=== PATIENT | male | born 2000 | race Caucasian/White ===

== ENCOUNTER 2020-08-11 02:46 | Emergency (ER) | payer SELFPAY ==
[2020-08-11 02:50] VITALS: BP 144/87; PULSE 83; RESP 16; TEMP 36.7; O2SAT 97
--- NOTE | 2020-08-11 03:03 | W.ED.GENAD ---
Discharge Plan Disposition Patient Disposition: HOME Condition: Good Discharge Details Clinical Impression: Abdominal pain Primary Care Provider: None,None ED Provider: Anibal White Home Meds and New Rx's Prescriptions: No Action No Known Home Meds RF: 0 Discharge Instructions Instructions: Biliary Colic (ED), Abdominal Pain (ED) Additional Instructions: I suspect this is related to gallbladder disease. Should avoid greasy, fried food. Will need primary care provider and outpatient ultrasound at some point. We will have care management help you arrange for follow-up. Return to ED for fever, worsening pain, persistent vomiting. Referrals: Care Management [Provider Group] Medical Decision Making Patient not best historian in regards to what foods cause this problem. However, given his report of multiple episodes like this related to eating and significant pain and vomiting tonight after a large greasy fried food meal, I suspect this is biliary colic. He does not look toxic. His abdomen is relatively benign though some tenderness in the right upper quadrant. We will plan IV, fluids, ondansetron, ketorolac. Will check abdominal labs. Patient reports that he feels fine at this point. Laboratory studies are unremarkable. White count minimally elevated. Liver function and lipase normal. Still suspect biliary colic less likely etiology. Does not have primary care. Will have care management help assign someone. Should have outpatient ultrasound and referral to surgery if ultrasound positive for stones. Return to ED for fever, worsening pain, persistent vomiting. Lab Data Lab results reviewed: Yes I reviewed the patient's lab results. HPI General Mode of arrival: ambulatory. Date/Time Provider Initiated Documentation: 08/11/20 03:03. Limitations to Documentation: no limitations. Information obtained by: patient and RN notes reviewed. HPI Narrative: Patient presents to ED with abdominal pain and vomiting. Patient reports prior episodes similar to this but only one other as severe as tonight. He has always associated with MSG. However this evening he had a fisherman's platter which was all fried food. He has had right upper quadrant and epigastric pain with associated vomiting all evening. No radiation to the back. No chest pain or shortness of breath. No diarrhea. No fever. Feels better sitting up straight and not moving. Remained uncomfortable and unable to sleep so sought evaluation here. Related Data Home Medications Medication Instructions Recorded Confirmed Unknown [No Known Home Meds] 08/11/20 08/11/20 Allergies Allergy/AdvReac Type Severity Reaction Status Date / Time pollen extracts Allergy Mild Unverified 10/31/17 08:20 ANIMALS Allergy Mild Uncoded 05/30/17 08:30 General Stated Complaint: Abd Prob REGGIE: 3 Review of Systems Narrative: As documented in HPI otherwise negative as below. Const: no fever, chills, weakness Resp: no cough, SOB, pleuritic pain CV: no CP, diaphoresis, edema, syncope GI: no diarrhea Neuro: no headache, numbness, focal weakness, confusion [facility] Medical History ADHD (attention deficit hyperactivity disorder) Asthma ? resolved 06/09 Insomnia Oppositional defiant behavior Surgical History Adenoidectomy Circumcision Myringotomy w/ PE (pressure equalizing) tubes Family History Mother Mental disorder ANXIETY/DEPRESSION Father Essential hypertension Grandfather Diabetes Heart disease PATERNAL GREAT GRANDMOTHER Diabetes Social History (Updated 08/11/20 @ 03:12 by Anibal White MD) Smoking/Tobacco Use Status: Current every day Smoking risk assessment performed?: Yes Alcohol Intake: current Alcohol Intake frequency: a few times a month Drug use: Occasionally Substance use type: marijuana Do you feel safe at home: Yes Do you feel safe in your relationship?: Yes Exam Narrative Exam Narrative: Const: WDWN male in NAD. HEENT: NC/AT. Normal facial exam. Eyes: Normal conjunctiva and sclera. Neck: Supple. Trachea midline. Lungs: Normal respiratory effort. Cor: Good radial pulses. GI: Soft and nondistended. Mild tenderness right upper quadrant. No guarding or rebound. No Espinoza sign. Neuro: A+O x 3. Normal speech, mentation, gait. Cranial nerves II - XII grossly intact. No gross motor or sensory deficit. Ext: No C/C/E. Skin: Warm and dry without rash. Course Vital Signs Vital signs: Vital Signs Temperature 98.1 F 08/11/20 02:50 Pulse 83 08/11/20 02:50 Respiratory Rate 16 08/11/20 02:50 Blood Pressure 144/87 H 08/11/20 02:50 Pulse Oximetry 97 08/11/20 02:50 Temperature 98.1 F 08/11/20 02:50 Temperature Source Skin 08/11/20 02:50 Pulse 83 08/11/20 02:50 Respiratory Rate 16 08/11/20 02:50 Respiratory Effort 08/11/20 02:56 Blood Pressure 144/87 H 08/11/20 02:50 Blood Pressure Position Supine 08/11/20 02:50 Pulse Oximetry 97 08/11/20 02:50 Oxygen Delivery Method Room Air 08/11/20 02:50 Oxygen Flow Rate 0 08/11/20 02:50 Pain Level 8 08/11/20 02:50
[2020-08-11] MEDS: Ondansetron 4 MG/2 ML VIAL IVP (03:23)
[2020-08-11] MEDS: Lactated Ringers 1,000 ML 1000 ML IV (03:23)
[2020-08-11] MEDS: Ketorolac 30 MG/ML VIAL IVP (03:24)
[2020-08-11 03:31] LABS: Abs Immature Grans 0.02 10^3/uL (0.0-0.06); Absolute Eosinophil Count 0.04 10^3/uL (0.0-0.7); Basophils % 0.3; Eosinophils % 0.3; HCT 46.8 % (40.0-50.0); Immature Grans % 0.2; Lymphocytes % 10.4; MCH 28.9 pg (27.0-33.0); MCHC 34.2 % (32.0-36.0); MCV 84.5 fL (80-95); MPV 9.3 fL (8.0-11.0); Monocytes % 5.1; Neutrophils % 83.7; Nucleated RBC 0 %; Platelet Count 259 10^3/uL (130-400); RBC 5.54 10^6/uL (4.36-5.78); RDW 13.2 % (11.8-14.1); RDW-SD 40.6 fL; WBC 11.69 10^3/uL (4.4-10.8)
[2020-08-11 03:32] LABS: Absolute Basophil Count 0.04 10^3/uL (0.0-0.2); Absolute Lymphocyte Count 1.22 10^3/uL (1.2-3.4); Absolute Neutrophil Count 9.78 10^3/uL (1.2-6.7)
[2020-08-11 04:00] LABS: ALT 61 U/L (16-63); AST 24 U/L (15-37); Albumin 4.5 g/dL (3.4-5.0); Alkaline Phosphatase 80 U/L (46-116); Anion Gap 9.8 mmol/L (3-11); BUN 17 mg/dL (7-18); Bilirubin, Total 0.5 mg/dL (0.2-1.0); CO2 29.2 mmol/L (21.0-32.0); CREATININE 1.06 mg/dL (0.70-1.30); Calcium 9.3 mg/dL (8.5-10.1); Chloride 99 mmol/L (98-107); Glucose 133 mg/dL (74-106); Lipase 50 U/L (73-393); Potassium 3.6 mmol/L (3.5-5.1); Sodium 138 mmol/L (136-145); Total Protein 8.2 g/dL (6.4-8.2)
--- NOTE | 2020-08-11 04:13 | NUR.NOTE ---
Referral to care management to get a pcp faxed [phone] August 11 2020 lib Nursing Note:
== END 2020-08-11 04:12 | disposition home or self-care (01) ==
PROVIDERS: Emergency Provider Emergency Medicine
DX: R10.11 Right upper quadrant pain (principal); R10.13 Epigastric pain; R11.2 Nausea with vomiting, unspecified
CPT/HCPCS: 36415; 80048; 80076; 83690; 96361; 96374; 96375; 99284; 85025; 99283; J1885; J2405

== ENCOUNTER 2021-02-26 22:40 | Inpatient (IN) | payer SELFPAY ==
[2021-02-26 22:45] VITALS: BP 144/87; PULSE 101; RESP 20; TEMP 37.5; O2SAT 98
--- NOTE | 2021-02-26 22:45 | DI.CT_ITS ---
Exam(s) CT ABDOMEN PELVIS W EXAM: CT ABDOMEN PELVIS W CLINICAL HISTORY: rlq and ruq tenderness, r/o gb and appe TECHNIQUE: COMPARISON: No exams were available for comparison FINDINGS: CT examination of the abdomen and pelvis was performed with bolus infusion of 100 cc of Omnipaque 350 . Images obtained through the lung bases are unremarkable. The liver appears normal with no evidence of a focal mass. Spleen is unremarkable in appearance.. Gallbladder and bile ducts are unremarkable. Pancreas is unremarkable in appearance. Adrenals appear normal bilaterally. Kidneys appear normal with no evidence of renal mass, hydronephrosis, or nephrolithiasis. Unremarkab le bladder. There is no evidence of abdominal or pelvic adenopathy. Abdominal aorta is of normal diameter and no abnormality is seen involving major visceral branches.. The appendix is dilated and fluid-filled with a thickened wall and periappendiceal fat stranding and small fluid collection. Findings are consistent with acute appendicitis. No evidence of abscess or perforation. No evidence diverticulitis or bowel obstruction. No significant abdominal wall hernia seen. Impression: Abnormal appendix with appearance consistent with acute uncomplicated appendicitis. RADIATION DOSE DELIVERED: 807.67mGy.cm Total DLP 807.67mGy.cm Total DLP DATA REPOSITORY: All CT scans at this facility are submitted to the National Radiology Data Registry (NRDR) Dose Index Registry (DIR) with the [employer] (A[employer]). RADIATION OPTIMIZATION: All CT scans at this facility use at least one of these dose optimization te chniques: automated exposure control; mA and/or kV adjustment per patient size (includes targeted exa ms where dose is matched to clinical indication); or iterative reconstruction.
--- NOTE | 2021-02-26 22:53 | W.ED.GENAD ---
Discharge Plan Disposition Patient Disposition: [facility] INPATIENT Condition: Improving Discharge Details Chief Complaint: Abd Prob Clinical Impression: Acute appendicitis Primary Care Provider: None,None ED Provider: Octavio Schroeder Home Meds and New Rx's Prescriptions: No Action No Known Home Meds RF: 0 Medical Decision Making This is a 21-year-old male with a past medical history of ADHD, asthma, regular alcohol use, as well as clinically suspected biliary colic on previous ER visits, who presents today for evaluation of right-sided abdominal pain. Patient states that for the last year or so he has had regular intermittent right-sided abdominal pain usually associated with fatty foods, however he states that a day and a half ago he had some chicken and since then has had severe right-sided abdominal pain. He vomited 5 times today and has not been able to keep anything down. He does admit to seeing a small amount of blood in his episodes of vomiting. He denies any diarrhea. He denies any chest pain or shortness of breath. He is not very clear when describing his symptoms, but does seem to state that it is unrelenting on the right side, and severe. He is otherwise not able to describe the consistency of the symptoms. He denies any radiation to the groin or genitals. He denies any urinary difficulty. No other complaints at this time. He has not seen a surgeon, he does not have a family doctor. He did take ibuprofen this morning and this did not improve his symptoms. Physical exam demonstrates notable right-sided abdominal tenderness, positive Rovsing sign, difficult to differentiate between right upper and right lower. No genital tenderness. No evidence of testicular torsion. Symptoms are concerning for acute appendicitis versus severe biliary colic or cholecystitis. We will get a CT scan, treat the patient's pain with Dilaudid and Nikita Mab, monitor closely and reassess. [address] scan shows evidence concerning for acute appendicitis. Radiologist did call us and discussed evidence of acute appendicitis on CT scan. Radiologist sees no evidence of acute cholecystitis. Patient has spiked a fever while here up to 38?C. We will start Zosyn, blood cultures have already been ordered and performed. We will contact the surgeon for potential surgical management here. 1:36 AM Patient's pain notably completely resolved. Patient has had no vomiting here. Patient feeling much better. Fever is now gone. Patient has received full dose of Zosyn. Discussed the case with Dr. Fuentes. She agrees with the assessment and plan. I will place bridging orders on her behalf. I have extensively reviewed the treatment plan with the patient. I have addressed all patient concerns at this time. I have also discussed the plan with the admitting physician and they agree with the current assessment and plan and have agreed to assume responsibility for the patient. All parties demonstrate verbal understanding and agreement with our assessment and plan at this time. The documentation in this chart was dictated using [employer] dictation software. Please excuse any dictation errors. FINDINGS: Lungs: Lung bases are unremarkable. Liver: Homogeneously enhances without mass. Gallbladder and bile ducts: No calcified stones, wall thickening or biliary dilatation. Pancreas: No mass or peripancreatic edema. Spleen: Homogeneously enhances. No splenomegaly. Adrenal glands: No adrenal nodule. Kidneys and ureters: Kidneys homogeneously enhance. No hydronephrosis. No renal or ureteral calculi. Stomach and bowel: Stomach is grossly unremarkable. No small or large bowel dilatation. No definite bowel wall thickening. Appendix: Appendix is distended and measures 1.2 cm in diameter. The wall the appendix is thickened. There is moderate adjacent stranding. There is no abscess or extraluminal air. Intraperitoneal space: No free air or free fluid. Vasculature: No abdominal aortic aneurysm. Lymph nodes: No significant adenopathy. Urinary bladder: No definite bladder wall thickening. Reproductive: Unremarkable as visualized. Bones/joints: No significant bony or joint space abnormality. Soft tissues: Extra-abdominal soft tissues are unremarkable. IMPRESSION: Acute appendicitis. Thank you for allowing us to participate in the care of your patient. Dictated and Authenticated by: Brendan Ortega MD 02/27/2021 12:21 AM Eastern Time ([place] & [place]) HPI General Date/Time Provider Initiated Documentation: 02/26/21 22:40. HPI Narrative: This is a 21-year-old male with a past medical history of ADHD, asthma, regular alcohol use, as well as clinically suspected biliary colic on previous ER visits, who presents today for evaluation of right-sided abdominal pain. Patient states that for the last year or so he has had regular intermittent right-sided abdominal pain usually associated with fatty foods, however he states that a day and a half ago he had some chicken and since then has had severe right-sided abdominal pain. He vomited 5 times today and has not been able to keep anything down. He does admit to seeing a small amount of blood in his episodes of vomiting. He denies any diarrhea. He denies any chest pain or shortness of breath. He is not very clear when describing his symptoms, but does seem to state that it is unrelenting on the right side, and severe. He is otherwise not able to describe the consistency of the symptoms. He denies any radiation to the groin or genitals. He denies any urinary difficulty. No other complaints at this time. He has not seen a surgeon, he does not have a family doctor. He did take ibuprofen this morning and this did not improve his symptoms. Related Data Home Medications Medication Instructions Recorded Confirmed Unknown [No Known Home Meds] 08/11/20 02/26/21 Allergies Allergy/AdvReac Type Severity Reaction Status Date / Time pollen extracts Allergy Mild Unverified 02/26/21 22:51 ANIMALS Allergy Mild Uncoded 02/26/21 22:51 General Stated Complaint: Abd Prob REGGIE: 3 Review of Systems All systems reviewed & are unremarkable except as noted in HPI and below PFSH Medical History ADHD (attention deficit hyperactivity disorder) Asthma ? resolved 06/09 Insomnia Oppositional defiant behavior Surgical History Adenoidectomy Circumcision Myringotomy w/ PE (pressure equalizing) tubes Family History Mother Mental disorder ANXIETY/DEPRESSION Father Essential hypertension Grandfather Diabetes Heart disease PATERNAL GREAT GRANDMOTHER Diabetes Social History Smoking/Tobacco Use Status: Current every day Tobacco Type: cigarettes Smoking risk assessment performed?: Yes Alcohol Intake: current Alcohol Intake frequency: 3 or more drinks per day Alcohol type: beer and hard liquor Drug use: Occasionally Substance use type: marijuana Do you feel safe at home: Yes Do you feel safe in your relationship?: Yes Exam Narrative Exam Narrative: 1.Const: Well-nourished, Well-developed, appearing stated age 2.Eyes: PERRL, no conjunctival injection, and symmetrical lids. 3.ENT: Atraumatic external nose and ears. Moist MM. Neck: Symmetric, trachea midline, No thyromegaly. 4.CVS: +S1/S2, No murmurs or gallops. Peripheral pulses 2+ and equal in all extremities. Brisk capillary refill in all extremities. 5.RESP: Unlabored respiratory effort. Clear to auscultation bilaterally. No wheezes rales or rhonchi 6.GI: Soft, nondistended, notable tenderness in the right mid abdominal quadrant, patient has notable voluntary guarding, and rebound tenderness on the right. Positive Rovsing sign as well. Difficult to ascertain Espinoza sign, patient does have pain at McBurney's point. No genital tenderness. No testicular or scrotal tenderness. No evidence of testicular torsion. Negative heel strike test, negative obturator and psoas sign. Mild right CVA tenderness. 7.MSK: Normocephalic/Atraumatic, Extremities w/o deformity or ttp No cyanosis or clubbing, Normal movement of all extremities 8.Skin: Warm, Dry. No rashes or lesions. 9.Neuro: family intervention specialist II-XII grossly intact. Sensation grossly intact, no focal neurologic deficits. 10.Psych: (AAO) x3. Appropriate mood and affect Course Vital Signs Vital signs: Vital Signs Temperature 37.5 C 02/26/21 22:45 Pulse 101 H 02/26/21 22:45 Respiratory Rate 20 02/26/21 22:45 Blood Pressure 144/87 H 02/26/21 22:45 Pulse Oximetry 98 02/26/21 22:45 Temperature 37.5 C 02/26/21 22:45 Temperature Source Skin 02/26/21 22:45 Pulse 101 H 02/26/21 22:45 Respiratory Rate 20 02/26/21 22:45 Blood Pressure 144/87 H 02/26/21 22:45 Blood Pressure Position Sitting 02/26/21 22:45 Pulse Oximetry 98 02/26/21 22:45 Oxygen Delivery Method Room Air 02/26/21 22:45 Oxygen Flow Rate 0 02/26/21 22:45 Pain Level 8 02/26/21 22:45
[2021-02-26 23:00] VITALS: TEMP 37.2
[2021-02-26] MEDS: Normal Saline 1,000 ML 1000 ML IV (23:05)
[2021-02-26 23:10] LABS: Abs Immature Grans 0.01 10^3/uL (0.0-0.06); Absolute Basophil Count 0.03 10^3/uL (0.0-0.2); Absolute Eosinophil Count 0.05 10^3/uL (0.0-0.7); Absolute Lymphocyte Count 1.38 10^3/uL (1.2-3.4); Absolute Monocyte Count 0.03 10^3/uL (0.1-0.8); Absolute Neutrophil Count 4.12 10^3/uL (1.2-6.7); Basophils % 0.5; Eosinophils % 0.9; HCT 52.2 % (40.0-50.0); HGB 17.5 g/dL (13.5-17.5); Immature Grans % 0.2; Lymphocytes % 24.6; MCH 28.7 pg (27.0-33.0); MCHC 33.5 % (32.0-36.0); MCV 85.7 fL (80-95); Monocytes % 0.5; Neutrophils % 73.3; Nucleated RBC 0 %; Platelet Count 259 10^3/uL (130-400); RBC 6.09 10^6/uL (4.36-5.78); RDW 13.2 % (11.8-14.1); RDW-SD 41.1 fL; WBC 5.62 10^3/uL (4.4-10.8)
[2021-02-26 23:21] LABS: ETHANOL BLOOD 4.5 mg/dL (<3)
[2021-02-26 23:24] LABS: ALT 39 U/L (16-63); AST 20 U/L (15-37); Albumin 4.4 g/dL (3.4-5.0); Alkaline Phosphatase 86 U/L (46-116); BUN 10 mg/dL (7-18); Bilirubin, Total 0.9 mg/dL (0.2-1.0); CREATININE 1.2 mg/dL (0.70-1.30); Calcium 9.6 mg/dL (8.5-10.1); Chloride 100 mmol/L (98-107); Glucose 117 mg/dL (74-106); Lipase 39 U/L (73-393); PTT Activated 23.9 sec (21.0-27.5); Potassium 3.6 mmol/L (3.5-5.1); Prothrombin Time 10.4 sec (9.3-11.0); Sodium 139 mmol/L (136-145); Total Protein 8.6 g/dL (6.4-8.2)
[2021-02-26] MEDS: HYDROmorphone 2 MG/ML VIAL 1 MG IVP (23:36)
[2021-02-26] MEDS: Normal Saline - Diluent 50 ML VIAL IV (23:36)
[2021-02-26] MEDS: Omnipaque 350 MG/ML 100 ML BTL IJ (23:36)
[2021-02-26] MEDS: Pantoprazole 40 MG VIAL IVP (23:41)
[2021-02-26] MEDS: FAMOTIDINE 20 MG/50 ML BAG 200 MG IVPB (23:42)
[2021-02-26 23:45] VITALS: BP 133/62; PULSE 108; RESP 16; TEMP 38.3; O2SAT 95
[2021-02-27] VITALS (18 sets, daily range): BP systolic 105–162; BP diastolic 51–107; PULSE 61–92; RESP 16–22; TEMP 36.1–37.4; O2SAT 92–98; BMI 31.3
[2021-02-27] MEDS: ACETAMINOPHEN 1,000 MG/100 ML BTL 400 MG IVPB ×4 (00:07→17:59)
[2021-02-27 00:15] LABS: COVID-19 PCR Negative (Negative)
--- NOTE | 2021-02-27 00:21 | DI.VRAD_ITS ---
Addendum created by Brendan Ortega MD on 02/27/2021 12:24:21 AM EDT: THIS REPORT CONTAINS FINDINGS THAT MAY BE CRITICAL TO PATIENT CARE. The findings were verbally communicated via telephone conference with АЛЕКСАНДР FALLON at 12:24 AM EDT on 02/27/2021. The findings were acknowledged and understood. Initial report created on 02/27/2021 12:21:29 AM EDT: PROCEDURE INFORMATION: Exam: CT Abdomen And Pelvis With Contrast Exam date and time: 02/26/2021 10:53 PM Age: 21 years old Clinical indication: Abdominal pain; Localized; Right lower quadrant (rlq); Patient HX: Rlq and ruq tenderness; Additional info: Reason(s) for exam: Pain. What type of pain is prompting the abdominal exam? Abdominal pain. Which best describes the abdominal pain? Localized. Where is the anatomical location of the pain? Right lower quadrant (rlq). Pertinent patient history: Rlq and ruq tenderness. Additional info: R/O gb and appe suspect an acute appendicitis. TECHNIQUE: Imaging protocol: Computed tomography of the abdomen and pelvis with contrast. Total images: 1244 COMPARISON: No relevant prior studies available. FINDINGS: Lungs: Lung bases are unremarkable. Liver: Homogeneously enhances without mass. Gallbladder and bile ducts: No calcified stones, wall thickening or biliary dilatation. Pancreas: No mass or peripancreatic edema. Spleen: Homogeneously enhances. No splenomegaly. Adrenal glands: No adrenal nodule. Kidneys and ureters: Kidneys homogeneously enhance. No hydronephrosis. No renal or ureteral calculi. Stomach and bowel: Stomach is grossly unremarkable. No small or large bowel dilatation. No definite bowel wall thickening. Appendix: Appendix is distended and measures 1.2 cm in diameter. The wall the appendix is thickened. There is moderate adjacent stranding. There is no abscess or extraluminal air. Intraperitoneal space: No free air or free fluid. Vasculature: No abdominal aortic aneurysm. Lymph nodes: No significant adenopathy. Urinary bladder: No definite bladder wall thickening. Reproductive: Unremarkable as visualized. Bones/joints: No significant bony or joint space abnormality. Soft tissues: Extra-abdominal soft tissues are unremarkable. IMPRESSION: Acute appendicitis. Dictated and Authenticated by: Brendan Ortega MD. Ordering:VICENTE Cunningham MD
[2021-02-27 00:24] LABS: Bilirubin Negative (Negative); Blood Trace-intact (Negative); Clarity Clear (Clear); Glucose Negative (Negative); Ketones Negative (Negative); Leukocyte Esterase Negative (Negative); Nitrite Negative (Negative); Specific Gravity 1.015 (1.005-1.025); Urobilinogen 0.2 EU/dL (Up TO 0.2); pH 6.5 (5-8)
[2021-02-27] MEDS: PIPERACILLIN/TAZO 4.5 GM in Normal Saline 100 ML IVPB ×4 (00:25→22:29)
[2021-02-27 00:30] LABS: Bacteria Negative HPF (Negative); C & S Indicated? No; Casts Negative LPF (Negative); Crystals Negative HPF (Negative); Epithelial Cells Negative HPF (Negative); Mucus Negative (Negative); WBC Negative HPF (0-5)
--- NOTE | 2021-02-27 01:58 | HPE_ITS ---
Date of service: 02/27/21 Time of Service: 01:59 Assessment and Plan Assessment and plan (1) Acute appendicitis: Status: Acute Assessment and plan: Informed consent is obtained for the procedural (explained in simple layman's terms that the pt and/or family could understand) explaining risks vs benefits and alternatives to the procedure and consequences if we do not do the procedure. Risks include but are not limited to:bleeding,infections, pneumonia, blood clots/DVT/PE, anesthesia(aspiration, damage to teeth/airway/[place]/CVA//prolonged mechanical ventilation/PTX/IV infections), damage to bowel, bladder,blood vessels, ureters. Leakage from anastomosis/staple line requiring colostomy/ Wound infections requiring further surgery. Scarring and disfigurement. Subsequent bowel obstructions from scar tissue. Possible open procedure if minimally invasive procedure is being attempted. abx supportive care appendix 6/6 pm History of Present Illness Consults Consult date: 02/27/21 Requesting physician: Octavio Schroeder Narrative: Patient is a 21-year-old otherwise healthy male who comes in today complaining of right lower quadrant abdominal pain. Patient's had it for the past 24 hours. He has had nausea and has not been able to eat he states this is been going off and on for the past 2 years and he is actually been diagnosed w ith biliary colic. He says the pain is on the suprapubic low level lateral to the suprapubic area on the right side and does not necessarily point to the right lower quadrant he is very nauseated he has been vomiting. He cannot remember the last thing he did eat. He denies any travel he denies any trauma. He has not been vaccinated. CT was obtained which did show acute appendicitis at the time of interview it is 3:15 AM. Myself and your crew will be back in 12 hours time to do this case. Patient is currently stable and will be maintained on antibiotics condition on suffered any sequelae from all 12-hour delay so the OR. Can get some rest I discussed with the patient what he could expect during surgery recovery time expectations how long he will be in the hospital and how long he would need to be off work. Patient is concerned because he has a court appearance on Sunday. We may or may not have him discharged by that time depending on the findings and surgery and he should probably make arrangements for a continuance participate via Zoom. He has a history of regular and daily alcohol use/daily nicotine use/regular use of THC.. He had dental surgery in the past in the did not give him enough anesthesia but that is the wound the only surgery he sat. There is no family history of problems with anesthesia that he is aware of Review of Systems All systems reviewed & are unremarkable except as noted in HPI and below PFSH Medical History (Updated 02/27/21 @ 17:13 by Lawanda Fuentes DO) ADHD (attention deficit hyperactivity disorder) Asthma ? resolved 06/09 Insomnia Oppositional defiant behavior Surgical History Adenoidectomy Circumcision Myringotomy w/ PE (pressure equalizing) tubes Family History Mother Mental disorder ANXIETY/DEPRESSION Father Essential hypertension Grandfather Diabetes Heart disease PATERNAL GREAT GRANDMOTHER Diabetes Social History Smoking/Tobacco Use Status: Current every day Tobacco Type: cigarettes Smoking risk assessment performed?: Yes Alcohol Intake: current Alcohol Intake frequency: 3 or more drinks per day Alcohol type: beer and hard liquor Drug use: Occasionally Substance use type: marijuana Do you feel safe at home: Yes Do you feel safe in your relationship?: Yes Meds Allergies and Home Medications Allergies Allergy/AdvReac Type Severity Reaction Status Date / Time pollen extracts Allergy Mild Unverified 02/26/21 22:51 ANIMALS Allergy Mild Uncoded 02/26/21 22:51 Home Medications Medication Instructions Recorded Confirmed Type Unknown [No Known Home Meds] 08/11/20 02/26/21 History Exam Const General: cooperative, healthy appearing, no acute distress, well developed, well groomed and frail appearing Nutritional Appearance: average body habitus and well nourished Orientation: alert, awake and oriented x3 HENMT Head: normal to inspection, normocephalic and atraumatic Ears: hearing grossly normal bilaterally and external ears normal General nose exam: external nose normal Face and sinus: normal facial exam and sinuses nontender Mouth: oral mucosae normal, lip normal, tongue normal and moist mucous membranes Teeth and gingiva: dentition normal Eyes General: appearance normal, both eyes and all related structures Conjunctivae: conjunctivae normal Sclera: sclerae normal Pupils: PERRL Neck Neck: normal visual inspection and full ROM Chest Chest: normal inspection of the chest Resp Effort & Inspection: normal respiratory effort, able to speak in complete sentences, no cough, no nasal flaring, not tachypneic and no use of accessory muscles Auscultation: clear to auscultation bilaterally, no rales, no rhonchi and no wheezes Cardio Jugular venous pressure: no JVD Rate: regular rate Rhythm: regular rhythm GI Inspection: normal to inspection, no edema and non-distended Palpation: soft, no masses, tender and No ascites Other: Bowel sounds are hypoactive. Abdomen is slightly distended. He is having pain in the right lower quadrant. He feels sick all over Skin General skin exam: no rashes or lesions noted Trauma: no lacerations or abrasions Other: He has multiple tattoos and multiple cutting esquivel on both his arms. Lower extremities show no clubbing cyanosis or edema swelling or redness or calf pain. Neuro General: patient alert, patient oriented x3, oriented, gait normal, moves all extremities, no focal motor deficits and CN's II-XI intact bilaterally Cognition: normal cognition Speech: speech normal Gait: normal gait Motor: muscle tone normal throughout Extrem General: normal to inspection, full ROM and no clubbing, cyanosis or edema Psych Appearance: grossly normal and well kempt Mental Status: mental status grossly normal Speech and Movement: speech and movement normal Affect: normal affect Results Labs Result diagrams: 02/26/21 23:00 02/26/21 23:00 Labs: Laboratory Results - last 24 hr 02/26/21 02/26/21 02/26/21 23:00 23:00 23:00 WBC 5.62 RBC 6.09 H Hgb 17.5 Hct 52.2 H MCV 85.7 MCH 28.7 MCHC 33.5 RDW 13.2 Plt Count 259 MPV 9.0 Immature Gran % 0.2 Neutrophils % 73.3 Lymphocytes % 24.6 Monocytes % 0.5 Eosinophils % 0.9 Basophils % 0.5 Nucleated RBC % 0 Absolute Neutrophils 4.12 Absolute Lymphocytes 1.38 Absolute Monocytes 0.03 L Absolute Eosinophils 0.05 Absolute Basophils 0.03 PT 10.4 INR 1.0 APTT 23.9 Sodium 139 Potassium 3.6 Chloride 100 Carbon Dioxide 31.0 Anion Gap 8.0 BUN 10 Creatinine 1.2 Estimated GFR/1.73 m2 >= 60.00 Glucose 117 H Calcium 9.6 Total Bilirubin 0.9 AST 20 ALT 39 Alkaline Phosphatase 86 Total Protein 8.6 H Albumin 4.4 Lipase 39 Urine Color Urine Clarity Urine pH Ur Specific [place] Urine Protein Urine Ketones Urine Blood Urine Nitrite Urine Bilirubin Urine Urobilinogen Ur Leukocyte Esterase Urine RBC Urine WBC Ur Epithelial Cells Urine Crystals Urine Bacteria Urine Casts Urine Mucus Ur Culture Indicated? Urine Glucose Ethyl Alcohol COVID-19 Source SARS-CoV-2 (PCR) 02/26/21 02/26/21 02/27/21 23:00 23:20 00:15 WBC RBC Hgb Hct MCV MCH MCHC RDW Plt Count MPV Immature Gran % Neutrophils % Lymphocytes % Monocytes % Eosinophils % Basophils % Nucleated RBC % Absolute Neutrophils Absolute Lymphocytes Absolute Monocytes Absolute Eosinophils Absolute Basophils PT INR APTT Sodium Potassium Chloride Carbon Dioxide Anion Gap BUN Creatinine Estimated GFR/1.73 m2 Glucose Calcium Total Bilirubin AST ALT Alkaline Phosphatase Total Protein Albumin Lipase Urine Color Yellow Urine Clarity Clear Urine pH 6.5 Ur Specific [place] 1.015 Urine Protein Negative Urine Ketones Negative Urine Blood Trace-intact H Urine Nitrite Negative Urine Bilirubin Negative Urine Urobilinogen 0.2 Ur Leukocyte Esterase Negative Urine RBC 3-5 H Urine WBC Negative Ur Epithelial Cells Negative Urine Crystals Negative Urine Bacteria Negative Urine Casts Negative Urine Mucus Negative Ur Culture Indicated? No Urine Glucose Negative Ethyl Alcohol 4.5 COVID-19 Source Nasopharyx SARS-CoV-2 (PCR) Negative Last Vital Signs Temp 37.4 C 02/27/21 00:26 Pulse 92 H 02/27/21 00:26 Resp 19 02/27/21 00:26 BP 131/59 L 02/27/21 00:26 Pulse Ox 96 02/27/21 00:26 COVID-19 Screening Have you, or household traveled for leisure in last 14 days?: No Had IN PERSON contact w/suspected or confirmed C-19 person: No
[2021-02-27] MEDS: Normal Saline 1,000 ML 150 ML IV ×3 (02:38→17:57)
[2021-02-27] MEDS: MORPHine 2 MG/ML SYR IVP ×4 (02:38→19:53)
[2021-02-27] MEDS: Pantoprazole 40 MG VIAL IVP (08:19)
[2021-02-27] MEDS: Normal Saline Flush 10 ML SYR IVP ×5 (08:24→22:28)
--- NOTE | 2021-02-27 13:08 | W.ANESPRE ---
General Info Date of Service Date Performed: 02/27/21 Height: 5 ft 7 in Weight: 90.718 kg Body Mass Index (BMI): 31.3 Surgical Procedure: Operation Date: 02/27/21 13:00 Proposed Procedures Side Surgeon p Appendectomy Laparoscopic Lawanda Fuentes, DO Meds Allergies and Home Medications Allergies Allergy/AdvReac Type Severity Reaction Status Date / Time pollen extracts Allergy Mild Unverified 02/26/21 22:51 ANIMALS Allergy Mild Uncoded 02/26/21 22:51 Home Medication Medication Instructions Recorded Unknown [No Known Home Meds] 08/11/20 Current Visit Medications: Current Medications Generic Name Dose Route Start Last Admin Trade Name Freq PRN Reason Stop Dose Admin Hydromorphone HCl 0.5 mg 02/27/21 02:04 Hydromorphone 2 Mg/Ml Vial IVP Q4H PRN PRN Sodium Chloride 500 mls @ 0 mls/hr 02/27/21 01:33 Saline 500ml Bag IV PRN PRN As Directed Sodium Chloride 1,000 mls @ 150 mls/hr 02/27/21 01:45 02/27/21 08:28 Saline 1000ml Bag IV 150 mls/hr INFUSION AIDA Administration Acetaminophen 1,000 mg in 100 mls @ 400 mls/hr 02/27/21 06:00 02/27/21 11:55 Ofirmev IVPB 400 mls/hr Q6H AIDA Administration Piperacillin Sod/Tazobactam 100 mls @ 25 mls/hr 02/27/21 08:00 02/27/21 08:19 Sod 4.5 gm/ Sodium Chloride IVPB 25 mls/hr Q8H AIDA Administration Protocol IV Miscellaneous Supplies 1 each 02/27/21 01:45 Iv Access IV DIRECTED AIDA Morphine Sulfate 2 mg 02/27/21 01:33 02/27/21 11:56 Morphine 2 Mg/Ml Syr IVP 2 mg Q1H PRN PRN Administration Ondansetron HCl 4 mg 02/27/21 01:33 Ondansetron 4 Mg/2 Ml Vial IVP Q4H PRN PRN Ondansetron HCl 4 mg 02/27/21 02:02 Ondansetron 4 Mg/2 Ml Vial IVP Q4H PRN PRN Pantoprazole Sodium 40 mg 02/27/21 08:30 02/27/21 08:19 Pantoprazole 40 Mg Vial IVP 40 mg DAILY AIDA Administration Sodium Chloride 0 ml 02/27/21 01:33 02/27/21 11:56 Normal Saline Flush 10 Ml Syr IVP 10 ml PRN PRN Administration [facility] Medical History Medical History ADHD (attention deficit hyperactivity disorder) Asthma ? resolved 06/09 Insomnia Oppositional defiant behavior Surgical History Surgical History Adenoidectomy Circumcision Myringotomy w/ PE (pressure equalizing) tubes Tobacco Smoking/Tobacco Use Status: Current every day Tobacco Type: cigarettes Alcohol Alcohol Intake: current Alcohol intake frequency: 3 or more drinks per day Alcohol type: beer and hard liquor Substance Use Substance use: Occasionally Substance use type: marijuana Vital Signs and Lab Results Vital Signs Most Recent Vital Signs in EMR: Most Recent Vital Signs Temp Pulse Resp BP Pulse Ox 36.9 C 82 17 139/75 98 02/27/21 11:09 02/27/21 11:09 02/27/21 11:09 02/27/21 11:09 02/27/21 11:09 Lab Results Result Diagrams: 02/26/21 23:00 02/26/21 23:00 Blood Type / Crossmatch: No Data to Display Complete Blood Count: White Blood Count 5.62 10^3/uL (4.4-10.8) 02/26/21 23:00 02/26/21 Red Blood Count 6.09 10^6/uL (4.36-5.78) H 02/26/21 23:00 02/26/21 Hemoglobin 17.5 g/dL (13.5-17.5) 02/26/21 23:00 02/26/21 Hematocrit 52.2 % (40.0-50.0) H 02/26/21 23:00 02/26/21 Platelet Count 259 10^3/uL (130-400) 02/26/21 23:00 02/26/21 Complete Metabolic Panel: Sodium Level 139 mmol/L (136-145) 02/26/21 23:00 02/26/21 Potassium Level 3.6 mmol/L (3.5-5.1) 02/26/21 23:00 02/26/21 Chloride Level 100 mmol/L (98-107) 02/26/21 23:00 02/26/21 Carbon Dioxide Level 31.0 mmol/L (21.0-32.0) 02/26/21 23:00 02/26/21 Blood Urea Nitrogen 10 mg/dL (7-18) 02/26/21 23:00 02/26/21 Creatinine 1.2 mg/dL (0.70-1.30) 02/26/21 23:00 02/26/21 Calcium Level 9.6 mg/dL (8.5-10.1) 02/26/21 23:00 02/26/21 Albumin 4.4 g/dL (3.4-5.0) 02/26/21 23:00 02/26/21 Glucose Level 117 mg/dL (74-106) H 02/26/21 23:00 02/26/21 Liver Function Panel: Alanine Aminotransferase (ALT/SGPT) 39 U/L (16-63) 02/26/21 23:00 02/26/21 Aspartate Amino Transf (AST/SGOT) 20 U/L (15-37) 02/26/21 23:00 02/26/21 Coagulation Panel: INR International Normalized Ratio 1.0 (0.9-1.1) 02/26/21 23:00 02/26/21 Prothrombin Time 10.4 sec (9.3-11.0) 02/26/21 23:00 02/26/21 Activated Partial Thromboplast Time 23.9 sec (21.0-27.5) 02/26/21 23:00 02/26/21 Cardiac Panel: No Data to Display Arterial Blood Gas: No Data to Display Venous Blood Gas: No Data to Display Pancreas Panel: Lipase 39 U/L (73-393) 02/26/21 23:00 02/26/21 Thyroid Panel: No Data to Display Infectious Disease: Coronavirus (COVID-19)(PCR) Negative (Negative) 02/26/21 23:20 02/26/21 Coronavirus 2019 Source Nasopharyx 02/26/21 23:20 02/26/21 Blood Cultures: No Data to Display Toxicology Panel: Ethyl Alcohol Level 4.5 mg/dL (<3) 02/26/21 23:00 02/26/21 Anesthesia Assessment and Plan Anesthesia History Personal History: No History of Anesthesia Complications Family History: No Family History of Anesthesia Complications Exercise Tolerance Exercise Tolerance: Metabolic Equivalents>4 Pertinent Negatives Pertinent Negatives: No Major Cardiovascular Symptoms or Complaints, No Major Pulmonary Symptoms or Complaints and No History of CVA/TIA Cardiac & Pulmonary Exam Cardiac Exam: Normal S1/S2 Heart Sounds Pulmonary Exam: Clear Bilateral Breath Sounds Airway Exam Known Difficult Airway: No Mallampati Class: 2 Mouth Opening: Normal (> 3cm) Thyromental Distance: Greater than 3 cm Neck Range of Motion: Full ROM Neck Circumference: Normal Teeth Condition: Normal Dentition ASA Classification ASA Score: ASA 2 Emergency Case?: Yes NPO Status NPO Status: NPO Clears >2 hours, Solids >8 hours Anesthesia Plan Resuscitation Status: Full Code Anesthesia Technique: General Anesthesia Airway Planned: Endotracheal Tube Monitors Used: Standard Monitors
--- NOTE | 2021-02-27 14:42 | APP_PTH ---
PATIENT: Jayme Lux LOC: U#:[id number] AGE/SX: 21/M ROOM: 207 RE02/27/[address]: Lawanda Fuentes : 2000 BED: A DIS: 02/28/2021 SPEC #: [id number] RECD: 02/28/21 13:01 STATUS: BRANDI RENey #: [id number] JACKIE: 02/27/21 14:[address]: Lawanda Fuentes DEPT: Surgical Specimen RECD BY: Bronwyn Prince ENTERED: 02/28/21 13:01 SP TYPE: Appendix OTHR DR: None Tissues: 1 - APPENDIX NOT INCIDENTAL Procedures: GROSS AND MICRO LEVEL 3 Comments: [id number]
--- NOTE | 2021-02-27 15:12 | W.PM.OP ---
Date of service: 02/27/21 Time of Service: 15:12 Operative Note Operative Note DATE OF PROCEDURE: 02/27/21 PRE-OP DIAGNOSIS: acute appy POST-OP DIAGNOSIS: same PROCEDURE: lap appy SURGEON: Lawanda Fuentes ANESTHESIA TYPE: Local By Surgeon and General LMA/ETT Refer to Anesthesia Record ESTIMATED BLOOD LOSS: 20 PATHOLOGY: other COMPLICATIONS: None Patient was transported to: PACU Patient's condition: stable Procedure Description: COMPLICATIONS: The patient tolerated the procedure well without complications. INDICATIONS: The patient has signs and symptoms compatible with acute appendicitis and is brought to the OR for laparoscopic appendectomy, possible open procedure. Informed consent is obtained for the procedural (explained in simple layman's terms that the pt and/or family could understand) explaining risks vs benefits and alternatives to the procedure and consequences if we do not do the procedure./staple line Risks include but are not limited to:bleeding,infections, pneumonia, blood clots/DVT/PE, anesthesia(aspiration, damage to teeth/airway/[place]/CVA//prolonged mechanical ventilation/PTX/IV infections), damage to bowel, bladder,blood vessels, ureters. Damage to solid organs requiring removal. Leakage from anastomosis staple line, which could requiring colostomy. Wound infections that could require further surgery. Scarring and disfigurement. Subsequent bowel obstructions from scar tissue. Possible open procedure if minimaly invsive procedure is being attempted. Abscess and stump appendicitis as well as others. Scarring and disfigurement. Chronic pain or chronic numbness DESCRIPTION OF PROCEDURE: The patient was brought to the operating room suite and placed in supine position. Anesthesia was administered per the Department of Anesthesia. A Zuñiga catheter and OG tube are placed. The patient was prepped and draped in the usual sterile fashion using ChloraPrep scrub solution. Pause for the cause was done. 30 mL of 1% buffered was used for local anesthetization. A stab incision was made in the umbilicus and the Veress was inserted. Drop test was positive and insufflation was begun. When 15 mm of pressure was noted on the monitor, the Veress was removed, a #5 port inserted. Camera inserted through the port shows no damage to underlying structures. Bowel, liver and stomach that are visualized are normal in appearance. Pelvic organs are not visualized. The appendix is inflamed, erythematous,enlarged, & distened, but does not appear to have been ruptured. The appendix is very suppurative. Appendix is. Medialized. And has to be dissected out from the surrounding peritoneum. It is also adhered to several loops of bowel as well and the appendix is dissected off the bowel. The appendix is also adherent to the ureter and this is dissected off it is it was easily visualized and was moving nicely. His urine was clear with no blood tingeing. There is no purulent drainage in the pelvis. It is not adhered to any adjacent structures. A 12 mm port was then placed in the suprapubic position under direct visualization following creation of a local field block as well as a second 5 mm port in the LLQ. The appendix is elevated and a rent dissected into the mesentery. The base of the appendix is healthy and will hold kassy. Once the appendix is divided considerable amount of time is spent dissecting the appendix from its peritoneal attachments and also freeing up the and defining and developing the appendiceal mesentery. Once this is done a Endo DARIUS stapler was placed across the mesentery and fired. A Endo-DARIUS stapler is placed across the base of the appendix and fired . The appendix is placed in a bag and brought out. There is no bleeding or enteric leakage from the staple lines. The pt does not require a drain. The abdomen was copiously irrigated with a liter of saline. All saline is evacuated. The scope and ports are removed. Pneumoperitoneum is evacuated. The fascia under the 12 mm port is closed with 0 Vicryl. There was no bleeding from the port sites as when they removed and the pneumoperitoneum evacuated. The wounds were copiously irrigated and closed in 2 layers with 4-0 Monocryl. Skin glue is used. Sterile dressings are applied. The patient tolerated the procedure without complication, transferred to the recovery room in stable condition. Family was apprised of patient condition. The appendix was very suppurative. And because of its proximity to urine I would like to keep him in the hospital overnight and flush him out will good. Would also like him to get another dose of antibiotics tonight. He should not need to go home on any further antibiotics. Provided he is doing okay in the morning he can be discharged.
--- NOTE | 2021-02-27 16:14 | W.ANESPOSTOP ---
Postoperative Evaluation Date, Time and Location Date Performed: 02/27/21 Time Performed: 16:09 Patient Location: Med/Surg Vital Signs Most Recent Imported Vital Signs: Most Recent Vital Signs Temp Pulse Resp BP Pulse Ox 36.5 C 66 22 158/107 H 95 02/27/21 15:51 02/27/21 15:51 02/27/21 15:51 02/27/21 15:51 02/27/21 15:51 Pain Score Most Recent Pain Score: Most Recent Pain Score Pain Level 0 02/27/21 15:51 Assessment Mental Status: Awake (Alert & Oriented to Patient Baseline) Airway and Respiratory Function: Patent airway with normal (patient baseline) respiratory exam Cardiovascular Function: Hemodynamically Stable Hydration Status: Adequately Hydrated Nausea & Vomiting: No Nausea or Vomiting Pain: Pt. Denies Any Pain Peripheral Nerve Block: Patient did not receive a nerve block
--- NOTE | 2021-02-27 16:23 | NUR.NOTE ---
Nursing Note: Pt went to OR for appendectomy, returned from OR awake, but disoriented slightly. Nursing reports Pt had ketamine during case and he is being slightly silly. VSS. will monitor.
[2021-02-27] MEDS: HYDROmorphone 2 MG/ML VIAL 0.5 MG IVP (16:33)
[2021-02-27] MEDS: Ondansetron 4 MG/2 ML VIAL IVP (16:33)
[2021-02-27] MEDS: Lactated Ringers 1,000 ML 75 ML IV (16:36)
--- NOTE | 2021-02-27 17:12 | W.PM.PROGNOT ---
Date of Service Date of service: 02/27/21 Time of Service: 17:12 Assessment and Plan Assessment and plan (1) Acute appendicitis: Status: Acute Assessment and plan: -cont abx x 24 hrs. not ruptured, but suppurative. -cont hydration- appendix was adhered down to ureter. urine was clear postOp. Want to continue hydration over night to avoid clots. -flavio inh -hopefully d/c in am The patient is doing well post-op. Their pain is well controlled. They are having no nausea or vomiting. The pt is not having any chest pain or SOB, productive cough; no calf pain or swelling. The pt is making good urine. The pt pain is adequately controlled. The case was discussed with nursing and patient?s progress reviewed. All of the pt's home medications were addressed and adjusted accordingly for their oral intact status. HEENT: no jaundice. no eye pain/drainage/redness/swelling. Mild sore throat Cardio- NSR no chest pain, BP stable. Pulm: no sob or productive cough. no hemoptysis Incision- clean/dry. Dressing intact no excessive bleeding or drainage I discussed with the patient the findings in surgery and the pt's progress. We reviewed expectations for progress in the hospital; what the pt could expect for recovery time and length of stay. We discussed the importance of walking and pulmonary toilet to avoid blood clots and pneumonia. Continue current plans for pulmonary toilet, GI and DVT prophylaxis. We shall continue the current plan for pain management as it is at an appropriate level, and working well for the pt. Appropriate measures will be taken for constipation prevention, and this was also reviewed with the pt. The wound care plan was reviewed with nursing as well. see orders (2) Smoker: Status: Acute (3) Insomnia: Status: None (4) ADHD (attention deficit hyperactivity disorder): Status: None (5) Asthma: Status: None Objective Last Vital Signs Temp 36.3 C L 02/27/21 16:43 Pulse 61 02/27/21 16:43 Resp 16 02/27/21 16:43 BP 130/82 02/27/21 16:43 Pulse Ox 98 02/27/21 16:43 Laboratory Results - last 24 hr 02/26/21 02/26/21 02/26/21 23:00 23:00 23:00 WBC 5.62 RBC 6.09 H Hgb 17.5 Hct 52.2 H MCV 85.7 MCH 28.7 MCHC 33.5 RDW 13.2 Plt Count 259 MPV 9.0 Immature Gran % 0.2 Neutrophils % 73.3 Lymphocytes % 24.6 Monocytes % 0.5 Eosinophils % 0.9 Basophils % 0.5 Nucleated RBC % 0 Absolute Neutrophils 4.12 Absolute Lymphocytes 1.38 Absolute Monocytes 0.03 L Absolute Eosinophils 0.05 Absolute Basophils 0.03 PT 10.4 INR 1.0 APTT 23.9 Sodium 139 Potassium 3.6 Chloride 100 Carbon Dioxide 31.0 Anion Gap 8.0 BUN 10 Creatinine 1.2 Estimated GFR/1.73 m2 >= 60.00 Glucose 117 H Calcium 9.6 Total Bilirubin 0.9 AST 20 ALT 39 Alkaline Phosphatase 86 Total Protein 8.6 H Albumin 4.4 Lipase 39 Urine Color Urine Clarity Urine pH Ur Specific [place] Urine Protein Urine Ketones Urine Blood Urine Nitrite Urine Bilirubin Urine Urobilinogen Ur Leukocyte Esterase Urine RBC Urine WBC Ur Epithelial Cells Urine Crystals Urine Bacteria Urine Casts Urine Mucus Ur Culture Indicated? Urine Glucose Ethyl Alcohol COVID-19 Source SARS-CoV-2 (PCR) 02/26/21 02/26/21 02/27/21 23:00 23:20 00:15 WBC RBC Hgb Hct MCV MCH MCHC RDW Plt Count MPV Immature Gran % Neutrophils % Lymphocytes % Monocytes % Eosinophils % Basophils % Nucleated RBC % Absolute Neutrophils Absolute Lymphocytes Absolute Monocytes Absolute Eosinophils Absolute Basophils PT INR APTT Sodium Potassium Chloride Carbon Dioxide Anion Gap BUN Creatinine Estimated GFR/1.73 m2 Glucose Calcium Total Bilirubin AST ALT Alkaline Phosphatase Total Protein Albumin Lipase Urine Color Yellow Urine Clarity Clear Urine pH 6.5 Ur Specific [place] 1.015 Urine Protein Negative Urine Ketones Negative Urine Blood Trace-intact H Urine Nitrite Negative Urine Bilirubin Negative Urine Urobilinogen 0.2 Ur Leukocyte Esterase Negative Urine RBC 3-5 H Urine WBC Negative Ur Epithelial Cells Negative Urine Crystals Negative Urine Bacteria Negative Urine Casts Negative Urine Mucus Negative Ur Culture Indicated? No Urine Glucose Negative Ethyl Alcohol 4.5 COVID-19 Source Nasopharyx SARS-CoV-2 (PCR) Negative
[2021-02-27] MEDS: Ketorolac 15 MG/ML VIAL IVP (22:28)
[2021-02-28] MEDS: ACETAMINOPHEN 1,000 MG/100 ML BTL 400 MG IVPB ×2 (00:46→05:33)
[2021-02-28] MEDS: Normal Saline 1,000 ML 150 ML IV (01:23)
[2021-02-28] MEDS: Ketorolac 15 MG/ML VIAL IVP ×2 (03:18→09:29)
[2021-02-28 04:14] VITALS: BP 102/49; PULSE 63; RESP 14; TEMP 36.2; O2SAT 97
[2021-02-28] MEDS: PIPERACILLIN/TAZO 4.5 GM in Normal Saline 100 ML IVPB (05:33)
[2021-02-28 06:53] LABS: Abs Immature Grans 0.02 10^3/uL (0.0-0.06); Absolute Basophil Count 0.01 10^3/uL (0.0-0.2); Absolute Lymphocyte Count 0.96 10^3/uL (1.2-3.4); Absolute Neutrophil Count 8.03 10^3/uL (1.2-6.7); Basophils % 0.1; HCT 42.8 % (40.0-50.0); HGB 14.5 g/dL (13.5-17.5); Immature Grans % 0.2; Lymphocytes % 9.8; MCH 29.2 pg (27.0-33.0); MCHC 33.9 % (32.0-36.0); MCV 86.3 fL (80-95); MPV 9.6 fL (8.0-11.0); Monocytes % 8.1; Neutrophils % 81.8; Nucleated RBC 0 %; Platelet Count 222 10^3/uL (130-400); RBC 4.96 10^6/uL (4.36-5.78); RDW 12.9 % (11.8-14.1); RDW-SD 40.4 fL; WBC 9.82 10^3/uL (4.4-10.8)
[2021-02-28 07:11] LABS: C-Reactive Protein 7.15 mg/dL (0.0-0.3)
[2021-02-28 07:28] VITALS: BP 120/62; PULSE 57; RESP 17; TEMP 36.5; O2SAT 97
[2021-02-28] MEDS: Normal Saline Flush 10 ML SYR IVP ×2 (07:35→09:29)
[2021-02-28] MEDS: Pantoprazole 40 MG VIAL IVP (07:35)
--- NOTE | 2021-02-28 09:30 | DSE_ITS ---
Date of service: 02/28/21 Time of Service: 09:31 DS: Diagnosis Discharge Diagnosis (1) Acute appendicitis: Status: Acute (2) Blood bacterial culture positive: Status: Acute Discharge Plan Disposition Patient Disposition: HOME Condition: Improving Discharge Details Reason For Visit: APPENDICITIS Admit Date/Time: 02/27/21 01:33 Admit Provider: Lawanda Fuentes Attending Provider: Lawanda Fuentes Primary Care Provider: None,None Home Meds and New Rx's Prescriptions: New ibuprofen 600 mg tablet 600 mg PO Q6H PRNQty: 90 RF: 0 amoxicillin-pot clavulanate [Augmentin] 875-125 mg tablet 1 tab PO Q12H 14 Days Qty: 28 RF: 0 Bio-K plus 50 billion cell capsule,delayed release(DR/EC) 1 cap PO DAILY Qty: 30 RF: 0 Discharge Instructions Additional Instructions: you need to be on antibiotics for two weeks. Take ALL of the antibiotics or you risk a life threatening infection! Keep an ice bag on the incision. 20 minutes on and 20 minutes off. Ice keeps the swelling down and swelling causes pain. Make sure you wrap the ice pack in a towel and don't apply directly to the skin. -No driving x 72 hrs -2 weeks of augmentin to prevent infections. Probiotic daily while on antibiotics. -Follow-up with Dr. Fuentes 03/09 @ 11:30am -regular diet -no straining to move bowels -pain meds are very constipating: if you do not move your bowels daily take a dose of OTC milk of magnesia -It is ok to shower. No bathe, soaking, swimming or hot tubs -Keep wound clean and dry. Wash incision with soap and water daily. Pat dry, don't rub. -no lifting over 10#'s x2 weeks. no fighting for 2 weeks. -You may find that your appetite is smaller. Eat 3-6 small meals throughout the day. It is important to drink lots of water after surgery, 6-10 glasses a day. -If you were given an incentive spirometry (breathing sweet potato disintegrator?), continue to do this 10x/hour while awake. -We do want you up walking, at least 5-6 times per day. This is very important to prevent pneumonia and blood clots. You can climb stairs, take them slowly. -No lifting over 5 pounds. This is very important to avoid developing a hernia in your incision. -You may find that you are very tired after surgery- this is normal. -please do not smoke for a minimum of 72 hours after surgery. Caring for Your Incision You?ll need to help care for your incision after surgery and certain medical procedures. To close an incision, your healthcare provider used stitches (sutures), special strips of surgical tape called Steri-Strips, surgical charles, or surgical skin glue. Follow the tips on this sheet to help stop bleeding, speed healing, and prevent infection of your incision. Pain Control Use ice! Ice keeps the swelling down and swelling is what causes pain. Never apply ice directly to the skin. Wrap it in a towel or cloth. Apply ice 20 minutes on and 20 minutes off for pain control. Use as needed. Take tylenol 500 mg by mouth with food every 4 hours as needed for pain. Or ibuprofen 600 mg by mouth with food every 6 hours as needed for pain. Do not take tylenol if you have a history of heavy drinking , hepatits C or liver problems. Do not take ibuprofen if you have a history of stomach ulcers/problems, bleeding problem or kidney issues. ? Home care ? Always wash your hands before touching your incision. ? Keep the incision clean, dry, and out of water, keep the incision out of water. ? Do not to pick at the scabs. Scabs help protect the wound. ? You can take a shower in 24 hours and wash the incision with soap and water. Pat dry/don?t scrub. It?s OK to wash around the incision. But don?t spray water directly on it. ? Pat stitches dry if they get wet. Don't rub. ? Check the incision site daily for pain, redness, drainage, swelling, or sep aration of the incision edges. ? If there is a bandage (dressing) over the incision, change this every 24 hours as instructed by your provider. Using clean hands change the dressing as directed by your healthcare provider. Always wash your hands before changing your dressing. ? Make sure any clothing that touches the incision is loose-fitting. This will prevent rubbing. If the incision is on the head, keep your child from wearing caps or other head coverings. These may rub against the incision. ? Try to avoid from rough play, contact sports, or physical activities for two weeks. This can put you at risk of opening the incision. ? Make sure you avoid doing things that could cause dirt or sweat to get in or on the incision. As your incision heals, the skin may appear pink or red. It may also feel slightly bumpy or raised. This is called a healing ridge. Over time, the color should fade and the raised skin will become less noticeable. Care for specific closures : ? Sutures or charles. Once you no longer need to keep these dry, clean the incision or wound daily, generally after the first 24 hours. First remove the bandage using clean hands. Then wash the area gently with soap and warm water. Use a wet cotton swab to loosen and remove any blood or crust that forms. After cleaning, put a thin layer of antibiotic ointment on. Then put on a new bandage. Follow-up care Charles or sutures generally need to be removed in 7-10 days. Be sure to return for suture or staple removal as directed. If dissolving stitches were used in your mouth, these will not need to be removed. They should fall out or dissolve on their own. If tape closures were used, remove them yourself when your healthcare provider tells you to if they have not fallen off on their own. When to seek medical care Call your healthcare provider right away if you have any of these: ? More pain, redness, swelling, bleeding, or foul-smelling discharge around the incision area ? Fever of 101?F (38.3?C) or higher, or as directed by your child's healthcare provider ? Shaking chills ? Vomiting or nausea that doesn?t go away ? Numbness, coldness, or tingling around the incision area, or changes in skin color ? Opening of the sutures or wound Stitches or charles come apart or fall out or surgical tape falls off before 7 days, or as directed by your healthcare provider [facility] make appt skylar/ Dr. Fuentes in 10 days. [phone] Activity:: see above Equipment/Supplies:: No Equipment Needed Diet:: As Tolerated Discharge Orders Discharge Orders: Discharge Order (Routine); Ordered 02/28/21 Ordered By: Lawanda Fuentes DS: Summary Time Spent with Patient providing and/or coordinating discharge services: Greater than 30 minutes Status at Discharge Functional status at discharge: independent ambulation Overall status at discharge: patient is back to baseline Mental Status: mental status grossly normal Speech and Movement: speech and movement normal Mood: congruent mood Affect: normal affect Exam Psych Mental Status: mental status grossly normal Speech and Movement: speech and movement normal Mood: congruent mood Affect: normal affect DS: Data Vitals/I&O Vitals and I&O: Vital Signs Temperature 36.5 C 02/28/21 07:28 Temperature Source Tympanic 02/28/21 07:28 Pulse 57 L 02/28/21 07:28 Pulse Rhythm Regular 02/28/21 04:00 Respiratory Rate 17 02/28/21 07:28 Respiratory Effort Non-Labored 02/28/21 04:00 Respiratory Depth Normal 02/28/21 04:00 Respiratory Pattern Normal 02/28/21 04:00 Blood Pressure 120/62 02/28/21 07:28 Blood Pressure Position Sitting 02/26/21 22:45 Pulse Oximetry 97 02/28/21 07:28 Oxygen Delivery Method Room Air 02/28/21 07:28 Oxygen Flow Rate 0 02/28/21 07:28 Pain Level 3 02/28/21 09:29 Intake & Output 02/27/21 02/27/21 02/28/21 11:59 23:59 11:59 Intake Total 2225 / 3765 1540 / 3765 1200 / 1200 Output Total 300 / 500 200 / 500 Balance 1925 / 3265 1340 / 3265 1200 / 1200 Weight 90.718 kg 85.3 kg Intake: IV 2225 / 3525 1300 / 3525 1200 / 1200 Oral 240 / 240 Output: Urine 300 / 500 200 / 500 Other: Urine Color Yellow [place] Urine Appearance Clear Clear Clear Clots Urine Odor Normal Comment concentrated urine, pt refused to void in hat. pt voiding independently, per pt report, urine had a bit of blood in it Emesis Description None Voiding Methods Toilet Toilet Data Completed and Pending Labs on day of discharge: Labs from last 24 hours 02/28/21 02/28/21 06:00 06:00 WBC 9.82 RBC 4.96 Hgb 14.5 D Hct 42.8 MCV 86.3 MCH 29.2 MCHC 33.9 RDW 12.9 Plt Count 222 MPV 9.6 Immature Gran % 0.2 Neutrophils % 81.8 Lymphocytes % 9.8 Monocytes % 8.1 Eosinophils % 0.0 Basophils % 0.1 Nucleated RBC % 0 Absolute Neutrophils 8.03 H Absolute Lymphocytes 0.96 L Absolute Monocytes 0.80 Absolute Eosinophils 0.00 Absolute Basophils 0.01 C-Reactive Protein 7.15 H Preliminary micro results at discharge 02/26/21 23:00 Blood Culture - Preliminary Blood Gram Negative Cocco Bacillus 02/26/21 00:00 Blood Culture - Preliminary Blood NO GROWTH 24 HOURS [facility] Medical History (Updated 02/28/21 @ 09:31 by Lawanda Fuentes DO) ADHD (attention deficit hyperactivity disorder) Asthma ? resolved 06/09 Insomnia Oppositional defiant behavior Surgical History Adenoidectomy Circumcision Myringotomy w/ PE (pressure equalizing) tubes Family History Mother Mental disorder ANXIETY/DEPRESSION Father Essential hypertension Grandfather Diabetes Heart disease PATERNAL GREAT GRANDMOTHER Diabetes Social History Smoking/Tobacco Use Status: Current every day Tobacco Type: cigarettes Smoking risk assessment performed?: Yes Alcohol Intake: current Alcohol Intake frequency: 3 or more drinks per day Alcohol type: beer and hard liquor Drug use: Occasionally Substance use type: marijuana Do you feel safe at home: Yes Do you feel safe in your relationship?: Yes
--- NOTE | 2021-02-28 09:34 | W.PM.PROGNOT ---
Date of Service Date of service: 02/28/21 Time of Service: 09:34 Assessment and Plan Assessment and plan (1) Blood bacterial culture positive: Status: Acute (2) Smoker: Status: Acute (3) ADHD (attention deficit hyperactivity disorder): Status: None (4) Acute appendicitis: Status: Acute Assessment and plan: pod #1 status post laparoscopic appendectomy Patient is doing well and wants to be discharged. Patient wanted to be discharged last evening but I convinced him to stay. He will be discharged today after his antibiotics are infused. He will be sent home with 2 weeks of p.o. Augmentin. He was given explicit instructions in wound care, activity, and warning signs. No lifting over 10 pounds for 2 weeks. No fighting. He should stop smoking. He needs to wash his wounds twice a day. No swimming. Avoid tobacco and alcohol. He can use Tylenol and ibuprofen and ice for pain control He was given a specific appointment date Please see discharge orders Patient stated he understood all and discharged in stable and satisfactory condition. Subjective Subjective Interval history since last seen: Pt is doing well. no headaches. No CP or SOB. no productive cough. no dysuria. no leg pain or swelling. Notes abdominal pain when he goes from lying to sitting and sitting to standing. He ate breakfast today. He has not had a bowel movement yet today. He is passing gas. He is urinating without problems. He denies sore throat. He wants to go home Exam Narrative Exam Narrative: PHYSICAL EXAM GENERAL APPEARANCE: Alert, healthy appearance, oriented, in no acute distress SKIN: No rashes. No breakdown HYDRATION: Well hydrated HEAD, EYES, EARS, NECK, THROAT: Head is normocephalic, pupils equal, round, reactive to light and accommodation, ocular movement intact, sclera clear and no jaundice. Dentition intact. No sore throat. No jaw pain. No thrush NECK: Supple, Trachea midline. No JVD. LUNGS: normal respiration/nl chest excursion. Clear to auscultation B/l no R/R/W HEART: Regular rate and rhythm, EXTREMITY: No edema or cyanosis no leg pain, redness, swelling. No IV infiltration ABDOMEN: Normal bowel sounds incisions are clean dry and intact no redness no drainage no swelling NEURO: no focal neuro deficits. He is moving all extremities equally and is up walking around Objective Last Vital Signs Temp 36.5 C 06/07/21 07:28 Pulse 57 L 02/28/21 07:28 Resp 17 02/28/21 07:28 BP 120/62 02/28/21 07:28 Pulse Ox 97 02/28/21 07:28 Laboratory Results - last 24 hr 02/28/21 02/28/21 06:00 06:00 WBC 9.82 RBC 4.96 Hgb 14.5 D Hct 42.8 MCV 86.3 MCH 29.2 MCHC 33.9 RDW 12.9 Plt Count 222 MPV 9.6 Immature Gran % 0.2 Neutrophils % 81.8 Lymphocytes % 9.8 Monocytes % 8.1 Eosinophils % 0.0 Basophils % 0.1 Nucleated RBC % 0 Absolute Neutrophils 8.03 H Absolute Lymphocytes 0.96 L Absolute Monocytes 0.80 Absolute Eosinophils 0.00 Absolute Basophils 0.01 C-Reactive Protein 7.15 H
--- NOTE | 2021-02-28 11:12 | PDOC.CMPRO ---
- If Service Date Differs Date of service: 02/28/21 Time of Service: 11:12 Care Management Progress Note S/O: Jayme is a 21 year old male who resides in [place], [place] with his family. He does not have insurance currently. JOSÉ met with Jayme to discuss insurance needs. He reported that his work does offer insurance, but he did not accept it as he does not often need to utilize it. JOSÉ sent a referral, with his consent, to [facility] to obtain health insurance quickly for access to care. He is being discharged home today with a new prescription for oral antibiotics. He will be given three days of antibiotics while he waits for insurance to be active. JOSÉ sent an email to [email or web address] to inform the court system that he would not be present for his court appearance this morning, as he is currently inpatient at [facility]. His sister will be picking him up upon discharge. JOSÉ will continue to follow. A: Jayme is a 21 year old male admitted to [facility] on 02/27/21 for Appendicitis. P: Jayme will return home with no services at this time. JOSÉ sent a referral to [facility] with consent for insurance support in the community. He will follow up with surgical services and his discharge plan of care. His sister will drive him home via private vehicle.
== END 2021-02-28 10:52 | disposition home or self-care (01) | DRG 342 ==
LOC: ER 02-27 01:38 → MS 02-27 02:13
PROVIDERS: Admitting Provider Surgery; Emergency Provider Student in an Organized Health Care Education/Training Program; Visit Provider Surgery
PROC: 0DTJ4ZZ Resection of Appendix, Percutaneous Endoscopic Approach (ICD-10-PCS; CPT 44970; principal; 2021-02-27 13:00)
DX: K35.80 Unspecified acute appendicitis (principal); R78.81 Bacteremia; J45.909 Unspecified asthma, uncomplicated; F17.210 Nicotine dependence, cigarettes, uncomplicated; G47.00 Insomnia, unspecified; F90.9 Attention-deficit hyperactivity disorder, unspecified type; F91.3 Oppositional defiant disorder; Z20.822 Contact with and (suspected) exposure to COVID-19
CPT/HCPCS: 44970; 36415; 80053; 83690; 87040; 87077; 87635; 96361; 96365; 96367; 96375; 99285; 74177; 80320; 81003; 81015; 85025; 85610; 85730; 86140; 88304; J0131; J1100; J1885; J2001; J2270; J2405; J2543; J3490

== ENCOUNTER 2021-04-08 16:42 | Emergency (ER) | payer SELFPAY ==
[2021-04-08 16:44] VITALS: BP 180/75; PULSE 102; RESP 18; TEMP 36.3; O2SAT 97
--- NOTE | 2021-04-08 16:45 | DI.CT_ITS ---
Exam(s) CT CHEST WO EXAM: CT CHEST WO CLINICAL HISTORY: entire truck fell onto right face/orbit, chest. TECHNIQUE: Multi planar reconstructions were performed. CONTRAST MATERIAL: None COMPARISON: No exams were available for comparison FINDINGS: CHEST: LUNGS: No evidence of lung contusion, pleural effusion, or pneumothorax. No incidental nodules. Omer gs are centrally clear. There no significant focal findings in the trachea and mainstem bronchi. MEDIASTINUM: No evidence of mediastinal hematoma. Visualized thyroid unremarkable.No hilar nor media stinal adenopathy. No axillary adenopathy. CARDIAC: Heart size is normal. There is no pericardial effusion.Caliber of the thoracic aorta is wit hin normal limits. VISUALIZED UPPER ABDOMEN:No obvious abnormalities. No ascites. OSSEOUS: No fractures.No osseous lesions.. IMPRESSION: 1. No evidence of significant intrathoracic trauma sequelae on this noninfused study. RADIATION DOSE DELIVERED: Total DLP DATA REPOSITORY: All CT scans at this facility are submitted to the National Radiology Data Registry (NRDR) Dose Index Registry (DIR) with the [employer] (A[employer]). RADIATION OPTIMIZATION: All CT scans at this facility use at least one of these dose optimization te chniques: automated exposure control; mA and/or kV adjustment per patient size (includes targeted exa ms where dose is matched to clinical indication); or iterative reconstruction.
--- NOTE | 2021-04-08 16:48 | DI.CT_ITS ---
Exam(s) CT HEAD CERV SPINE FACIAL WO EXAM: CT HEAD CERV SPINE FACIAL WO CLINICAL HISTORY: entire truck fell onto right face/orbit, chest. TECHNIQUE: Imaging Protocol: Axial computed tomography images with coronal and sagittal reformatted images were created and reviewed COMPARISON: No exams were available for comparison FINDINGS: CT BRAIN: There are no skull fractures nor fluid in the visualized paranasal sinuses. There is no evidence of intracranial hemorrhage, mass effect, or shift of midline structures. There are no extra-axial fluid collections. The ventricles are not enlarged or shifted and there is no blo od within the ventricular system nor within the basal cisterns. CT MAXILLOFACIAL BONES: There is mild swelling of the right-side of the face pre maxillary region. There is no evidence of facial fractures nor fluid in the visualized paranasal sinuses. there is no evidence of orbital blowout fracture. No evidence of nasal bone fracture. CT CERVICAL SPINE: There is no evidence of fracture nor listhesis. No significant prevertebral soft tissue swelling. N o facet malalignment evident. No significant osseous lesions evident. IMPRESSION: No acute intracranial findings on this noninfused CT scan of the brain. No evidence of facial nor orbital blowout fractures.Mild right-sided facial soft tissue swelling evid ent No evidence of cervical spine fracture, malalignment, nor acute compromise of the cervical spinal can al. RADIATION DOSE DELIVERED: Total DLP DATA REPOSITORY: All CT scans at this facility are submitted to the National Radiology Data Registry (NRDR) Dose Index Registry (DIR) with the [employer] (ACR). RADIATION OPTIMIZATION: All CT scans at this facility use at least one of these dose optimization te chniques: automated exposure control; mA and/or kV adjustment per patient size (includes targeted exa ms where dose is matched to clinical indication); or iterative reconstruction.
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
[2021-04-08] MEDS: Tetracaine 0.5% 4 ML BTL OP (16:54)
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
[2021-04-08] MEDS: Balanced Salt Solution 15 ML BTL (18:57)
[2021-04-08] MEDS: Fluorescein STRIPS 100/BOX 1 MG (18:58)
== END 2021-04-08 18:28 | disposition home or self-care (01) ==
PROVIDERS: Emergency Provider Student in an Organized Health Care Education/Training Program
DX: S28.0XXA Crushed chest, initial encounter (principal); S07.0XXA Crushing injury of face, initial encounter; S00.11XA Contusion of right eyelid and periocular area, initial encounter; W20.8XXA Other cause of strike by thrown, projected or falling object, initial encounter; W23.1XXA Caught, crushed, jammed, or pinched between stationary objects, initial encounter
CPT/HCPCS: 71250; 80053; 85652; 90471; 99284; 70450; 70486; 72125; 83735; 84484; 85025

== ENCOUNTER 2022-04-14 11:39 | Emergency (ER) | payer SELFPAY ==
[2022-04-14 11:44] VITALS: BP 124/78; PULSE 63; RESP 18; TEMP 37.2; O2SAT 95
--- NOTE | 2022-04-14 12:09 | PDOC.ERCMPRO ---
- If Service Date Differs Date of service: 04/14/22 Time of Service: 12:09 Care Management Progress Note SBIRT screen: positive for nicotine. Brief Intervention and referral to tx completed. Pt reports no other substance use or mental health symptoms. Pt notes he quit drinking a year ago due to probation for alcohol related offenses. 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
--- NOTE | 2022-04-14 12:15 | DI.RAD_ITS ---
Exam(s) XR FOOT LT COMPLETE EXAM: XR FOOT LT COMPLETE CLINICAL HISTORY: pain. TECHNIQUE: 2D digital imaging was performed. Three views. COMPARISON: No exams were available for comparison FINDINGS: BONES: No acute fracture is present. No bony destructive lesion is seen. JOINTS: No dislocation present. SOFT TISSUE: Lateral swelling IMPRESSION: Unremarkable radiographs of the left foot. DATA REPOSITORY: RADIATION DOSE DELIVERED:
--- NOTE | 2022-04-14 12:28 | NUR.NOTE ---
Nursing Note: Pt info given to care management to establish care & follow up in a week for foot infection. Lilo, ED
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
[2022-04-14] MEDS: Amoxicillin 875/Clav. 125 TAB PO (12:33)
[2022-04-14] MEDS: Ibuprofen 600 MG TAB PO (12:33)
[2022-04-14] MEDS: Nystatin CREAM 15 GM TUBE TP (12:34)
== END 2022-04-14 13:59 | disposition home or self-care (01) ==
PROVIDERS: Emergency Provider Emergency Medicine
DX: L03.116 Cellulitis of left lower limb (principal); F17.210 Nicotine dependence, cigarettes, uncomplicated
CPT/HCPCS: 99283; 73630; 99284; J3490

== ENCOUNTER 2023-07-21 15:44 | Emergency (ER) | payer MEDICAID, SELFPAY ==
[2023-07-21 15:51] VITALS: BP 150/90; PULSE 86; RESP 20; TEMP 37.1; O2SAT 96
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
[2023-07-21 17:28] LABS: Abs Immature Grans 0.01 10^3/uL (0.0-0.06); Absolute Basophil Count 0.03 10^3/uL (0.0-0.2); Absolute Eosinophil Count 0.07 10^3/uL (0.0-0.7); Absolute Lymphocyte Count 2.38 10^3/uL (1.2-3.4); Absolute Monocyte Count 0.32 10^3/uL (0.1-0.8); Absolute Neutrophil Count 3.98 10^3/uL (1.2-6.7); Basophils % 0.4; HCT 49.9 % (40.0-50.0); HGB 16.9 g/dL (13.5-17.5); Immature Grans % 0.1; Lymphocytes % 35.1; MCH 27.8 pg (27.0-33.0); MCHC 33.9 % (32.0-36.0); MCV 82 fL (80-95); MPV 8.8 fL (8.0-11.0); Monocytes % 4.7; Neutrophils % 58.7; Platelet Count 310 10^3/uL (130-400); RBC 6.07 10^6/uL (4.36-5.78); RDW 12.8 % (11.8-14.1); RDW-SD 38.2 fL; WBC 6.79 10^3/uL (4.4-10.8)
[2023-07-21 17:44] LABS: ALT 74 U/L (16-63); AST 25 U/L (15-37); Albumin 4.6 g/dL (3.4-5.0); Alkaline Phosphatase 68 U/L (46-116); Anion Gap 8.5 mmol/L (3-11); BUN 13 mg/dL (7-18); Bilirubin, Total 0.4 mg/dL (0.2-1.0); CO2 27.5 mmol/L (21.0-32.0); Calcium 9.8 mg/dL (8.5-10.1); Chloride 101 mmol/L (98-107); Estimated GFR 108.46 (mL/min/1.73m2); Glucose 100 mg/dL (74-106); Lipase 22 U/L (16-77); Magnesium 2.1 mg/dL (1.8-2.4); Potassium 3.9 mmol/L (3.5-5.1); Sodium 137 mmol/L (136-145); Total Protein 8.6 g/dL (6.4-8.2)
[2023-07-21 17:45] LABS: Diff Comment Diff Reviewed; RBC Morphology Normal
--- NOTE | 2023-07-21 17:45 | DI.CT_ITS ---
Exam(s) CT ABDOMEN PELVIS W EXAM: CT ABDOMEN PELVIS W CLINICAL HISTORY: RUQ abd pain, vomiting. TECHNIQUE: Imaging Protocol: Axial computed tomography images with coronal and sagittal reformatted images were created and reviewed CONTRAST MATERIAL: Intravenous: Omnipaque 350 Contrast volume:100 ml Oral: yes / no COMPARISON: CT CT ABDOMEN PELVIS W from 02/26/2021 FINDINGS: ABDOMEN and PELVIS: Lung Bases: Normal where visualized. Liver: Normal density. No measurable mass. Gallbladder and biliary tract: No radiodense calculus or biliary dilation. No evidence of gallbladde r wall thickening. Pancreas: Normal density. No abnormal calcifications or inflammatory process. No evidence of mass. Spleen: Normal. Kidneys: Normal size, contour and axis. No radiodense stones. No obstructive uropathy. No suspicious masses seen. Adrenal glands: No masses seen. Vasculature: Abdominal aorta non-dilated. Soft tissues: Tiny amount of fat at the umbilicus. Bladder: No gross wall thickening. No calculi.No focal mass. Bowel: No obstruction. No bowel wall thickening. Status post appendectomy. Peritoneal cavity: No ascites. No focal collection or mesenteric inflammatory response. Bones: Stable minimal loss of height of the T10 vertebral body. Stable appearance and slight anterol isthesis of S1 with respect to L5. Reproductive organs: Within normal limits. Lymph nodes: Unremarkable. IMPRESSION:: Unremarkable CT scan of the abdomen and pelvis. RADIATION DOSE DELIVERED: Total DLP DATA REPOSITORY: All CT scans at this facility are submitted to the National Radiology Data Registry (NRDR) Dose Index Registry (DIR) with the [employer] (ACR). RADIATION OPTIMIZATION: All CT scans at this facility use at least one of these dose optimization te chniques: automated exposure control; mA and/or kV adjustment per patient size (includes targeted exa ms where dose is matched to clinical indication); or iterative reconstruction.
[2023-07-21] MEDS: Ondansetron 4 MG/2 ML VIAL IVP (17:59)
[2023-07-21] MEDS: fentaNYL 100 MCG/2 ML VIAL 25 MCG IVP (17:59)
[2023-07-21] MEDS: Normal Saline 1,000 ML 1000 ML IV (17:59)
[2023-07-21] MEDS: Normal Saline - Diluent 50 ML VIAL IJ (18:15)
[2023-07-21] MEDS: Omnipaque 350 MG/ML 100 ML BTL IJ (18:25)
[2023-07-21 18:41] LABS: Bilirubin Negative (Negative); Blood Trace-intact (Negative); Clarity Clear (Clear); Glucose Negative (Negative); Ketones Negative (Negative); Leukocyte Esterase Negative (Negative); Nitrite Negative (Negative); Urobilinogen 0.2 mg/dL (Up to 0.2); pH 5.5 (5-8)
[2023-07-21 18:57] LABS: Bacteria Negative HPF (Negative); C & S Indicated? No; Crystals Negative HPF (Negative); Epithelial Cells Rare HPF (Negative); Mucus Trace (Negative); RBC 0-2 HPF (0-2); WBC Negative HPF (0-5)
--- NOTE | 2023-07-21 19:12 | DI.VRAD_ITS ---
PROCEDURE INFORMATION: Exam: CT Abdomen And Pelvis With Contrast Exam date and time: 07/21/2023 6:15 PM Age: 23 years old Clinical indication: Other: Ruq abd pain, vomiting TECHNIQUE: Imaging protocol: Computed tomography of the abdomen and pelvis with contrast. Contrast material: 350; Contrast volume: 100 ml; Contrast route: INTRAVENOUS (IV); COMPARISON: CT ABDOMEN PELVIS W 02/26/2021 11:25 PM FINDINGS: Lungs:Series 5, image 5 demonstrates a fluid-filled structure surrounding the right inferior pulmonary vein near where it enters the left atrium. This is most consistent with the right pulmonary venous recess, a type of pericardial recess. Mediastinal space: There is gas in the distal esophagus which can be seen with reflux. Liver: Normal. No mass. Gallbladder and bile ducts: No calcified gallstones identified Pancreas: There is mild haziness to the fat posterior to the pancreas on series 5, image 235. This should be correlated with any concern for pancreatitis. Spleen: Normal. No splenomegaly. Adrenal glands: Normal. No mass. Kidneys and ureters: Normal. No hydronephrosis. Stomach and bowel: There is gastric wall prominence. This can be seen with underdistention or gastritis. No obstruction. Appendix: Not identified. Intraperitoneal space: Unremarkable. No free air. No significant fluid collection. Vasculature: No aneurysm. Lymph nodes: Unremarkable. No enlarged lymph nodes. Urinary bladder: The internal contents measure greater than water density. Components of blood or infection are not excluded. Reproductive: Unremarkable as visualized. Bones/joints: There is mild retrolisthesis of L5 on S1, unchanged. Mild depression of the superior endplate of the T10 vertebral body is also unchanged. No acute fracture. Soft tissues: Small fat containing umbilical hernia.. IMPRESSION: 1. Gastric wall prominence. This can be seen with underdistention or gastritis. 2.There is mild haziness to the fat posterior to the pancreas on series 5, image 235. This should be correlated with any concern for pancreatitis. 3. The internal contents of the urinary bladder measure greater than water density. Components of blood or infection are not excluded. Clinical correlation with urinalysis recommended. 4. No calcified gallstones identified. Noncalcified gallstones can sometimes be difficult to identify on CT scan. If there is concern for gallbladder abnormalities, an ultrasound could be considered. Other findings/details as above. Dictated and Authenticated by: Cheryl Milian MD. Ordering:BRAYDON Liriano MD
== END 2023-07-21 19:41 | disposition home or self-care (01) ==
PROVIDERS: Emergency Provider Registered Nurse Emergency
DX: R11.2 Nausea with vomiting, unspecified (principal); K52.9 Noninfective gastroenteritis and colitis, unspecified; Z72.0 Tobacco use
CPT/HCPCS: 80053; 83690; 96361; 96374; 96375; 99285; 74177; 81003; 81015; 83735; 85025; 99284; J2405; J3010; J3490

== ENCOUNTER 2025-03-11 02:19 | Outpatient (CLI) | payer MEDICAID, SELFPAY ==
--- NOTE | 2025-03-11 | DI.US_ITS ---
Exam(s) US SOFT TISS ABD WALL/LOW BACK EXAM: US SOFT TISS ABD WALL/LOW BACK CLINICAL HISTORY: SKIN NODULE/MASS/SWELLING LT POSTERIOR RIB AREA,R22.9. TECHNIQUE: Ultrasound was performed using standard protocol. COMPARISON: No exams were available for comparison FINDINGS: Sonographic assessment utilizing grayscale and color Doppler imaging was performed and targeted to the area of clinical concern. Sonographic evaluation of the left posterior back in the area of palpable abnormality was performed. There is a 3.7 x 1.1 x 1.4 cm subcutaneous well- circumscribed mass. It is isoechoic to the surrounding fat. It is most suggestive of a lipoma. IMPRESSION: Findings most suggestive of a lipoma in the left back corresponding to the palpable abnormality. DATA REPOSITORY:
--- NOTE | 2025-03-11 | DI.US_ITS ---
Exam(s) US SOFT TISSUE EXTREMITY EXAM: US SOFT TISSUE EXTREMITY CLINICAL HISTORY: SKIN NODULE/MASS/SWELLING,R22.9 RT SIDE OF CLAVICLE. TECHNIQUE: Ultrasound was performed using standard protocol. COMPARISON: No exams were available for comparison FINDINGS: Sonographic assessment utilizing grayscale and color Doppler imaging was performed and targeted to the area of clinical concern. The right supraclavicular region was evaluated sonographically. There is a sonographically benign-appearing 0.5 x 0.3 x 0.5 cm lymph node present. No suspicious cystic or solid masses are seen sonographically. IMPRESSION: 0.5 x 0.3 x 0.5 cm sonographically benign-appearing lymph node is seen in the supraclavicular region in the area of interest. DATA REPOSITORY:
== END 2025-03-11 02:39 ==
LOC: DI 02:20
PROVIDERS: Visit Provider Nurse Practitioner Family
DX: R22.2 Localized swelling, mass and lump, trunk (principal)
CPT/HCPCS: 76881; 76705